=== PATIENT | male | born 1945 | race Caucasian/White ===

== ENCOUNTER 2024-04-17 12:02 | Day surgery (SDC) | payer MEDICARE ==
[~2024-04-17] VITALS: Ht 170.2 cm; Wt 79.3 kg
[2024-04-17] VITALS (10 sets, daily range): BP systolic 107–153; BP diastolic 58–93; PULSE 54–78; TEMP 98.1
[2024-04-17] MEDS ORDERED: PULMICORT0.5 MG/2 M IH (12:42)
[2024-04-17] MEDS ORDERED: BROVANA15 MCG/2 M IH (12:42)
[2024-04-17] MEDS ORDERED: YUPELRI175 MCG/3 IH (12:43)
[2024-04-17] MEDS ORDERED: OXYGEN (12:44)
[2024-04-17] MEDS ORDERED: 1/2 NS 1,000 ML IV SCH (12:45)
--- NOTE | 2024-04-17 12:51 | NUR ---
Initial visit; Patient requested prayer prior to surgical procedure. Patient thanked [facility] [employer] for praying for a successful Procedure and rapid and thorough recovery. Patient's thanked [employer] for coming in and prayer.
[2024-04-17 12:58] LABS: HEMATOCRIT 48.7 % (42.0-52.0); HEMOGLOBIN 16.2 g/dl (13.5-18.0); MEAN CELL VOLUME 93 fl (80.0-100.0); MEAN CORPUSCULAR HEMOGLOBIN 31 pg (27-31); MEAN CORPUSCULAR HGB CONC 33 g/dl (33.0-37.0); MEAN PLATELET VOLUME 10.2 fl (7.4-10.4); PLATELET COUNT 242 K/mm3 (130-400); RED BLOOD COUNT 5.24 M/mm3 (4.20-5.60); REDCELL DISTRIBUTION WIDTH-CV 13.7 % (11.5-14.5)
[2024-04-17 13:00] LABS: PROTHROMBIN TIME 10.9 SECONDS (9.7-12.8)
[2024-04-17 13:02] LABS: PARTIAL THROMBOPLASTIN TIME 33.7 SECONDS (26.0-37.0)
[2024-04-17 13:11] LABS: CALCIUM 9.6 mg/dL (8.4-10.2); CREATININE, serum 0.81 mg/dL (0.72-1.25); POTASSIUM 4.7 mEq/L (3.5-4.5)
[2024-04-17] MEDS ORDERED: niCARdipine (Cath Lab) 100 MCG/ML 10 ML VIAL IA SCH (15:38)
[2024-04-17] MEDS ORDERED: Heparin 1,000 UNITS/ML 10 ML Multi-Dose VIAL IV SCH (15:40)
[2024-04-17] MEDS ORDERED: Iohexol 350 - 100 ML VIAL INCOR ONE (15:59)
[2024-04-17] MEDS ORDERED: Midazolam 2 MG/2 ML VIAL IV SCH (16:02)
[2024-04-17] MEDS ORDERED: fentaNYL 50 MCG/ML 2 ML VIAL IV SCH (16:02)
[2024-04-17] MEDS ORDERED: ASPIRIN E.C. 8181 MG PO (16:18)
[2024-04-17] MEDS ORDERED: LIPITOR 40MG TA40 MG PO (16:19)
[2024-04-17] MEDS ORDERED: IMDUR 30MG30 MG/TAB PO (16:19)
--- NOTE | 2024-04-17 16:25 | NUR ---
Jeremy is transferred back to express unit rm 12 after left heart cath with Dr. Partida. Jeremy is awake and alert, pwd with reg and unlabored respirations. Sats 88% on room air with good wave form. oxygen applied 1l/nc for now. TR band to rt wrist, cms intact distal, no bleeding noted. BS report and handoff of care to Estelle DELUCA.
--- NOTE | 2024-04-17 16:30 | NUR ---
Jeremy decided not to wear the oxygen, states "i think it (o2 sats) will come up"
--- NOTE | 2024-04-17 19:12 | NUR ---
Pt ambulated with a steady gait to EU12, accompanied by . Pt was scheduled for a [facility]. EKG done. IV started, labs drawn. Consent for the procedure signed. Meds and HX reviewd with the pt. Post procedure the pt came back to EU12. Offered the pt something to eat and drink. Pt accepted a coffee and a meal was orderd. The right radial site was assessed at time of arrival, clean, dry, and intact. Pt was bedrest for an hour. At the end of the 2nd hour in recovery, air was taken out of the radial band. 2 mls about every 15 minutes. air was taken out of the radial band. The radial site remained clean, dry, and intact throughout this process. Once all the air was released the site was cleaned and a band-aid was applied. The deflated radial band was reapplied as a reminder to limit extremity use. The arm board was applied as well as a second reminder. Discharge education and information was discussed with the pt. No questions at the time. IV dc'd and wrapped in coban. Pt exited the unit by wheelchair accompanied by the nurse to the wifes car.
== END 2024-04-17 19:13 | disposition home or self-care (01) ==
LOC: COL.CAR 12:02
PROVIDERS: Internal Medicine Cardiovascular Disease
DX: R94.39 Abnormal result of other cardiovascular function study (principal)
CPT/HCPCS: C1769; J1644; J2250; J2404; J3010; Q9967